=== PATIENT | male | born 1975 | race Caucasian/White ===

== ENCOUNTER 2022-05-19 16:28 | Emergency (ER) | payer OTHER, BC ==
[~2022-05-19] VITALS: Ht 177.8 cm; Wt 189.6 kg
[~2022-05-19 16:28] MED LIST: ALBU90OI INH; AZIT500 PO; CHANTIX PO; HYDGUAL120 PO; PRED20 PO
[2022-05-19 17:10] LABS: BASOPHILS ABSOLUTE AUTO 0.06 K/mm3 (0.00-0.23); BASOPHILS PERCENT AUTO 1 % (0-2); EOSINOPHILS ABSOLUTE AUTO 0.59 K/mm3 (0.00-0.68); EOSINOPHILS PERCENT AUTO 6 % (0-6); Hematocrit 45.3 % (37.0-53.0); Hemoglobin 15.5 g/dL (13.5-17.5); IMMATURE GRAN ABSOLUTE AUTO 0.09 K/mm3 (0.00-0.10); IMMATURE GRAN PERCENT AUTO 1 % (0-1); LYMPHOCYTES PERCENT AUTO 23 % (21-46); MONOCYTES ABSOLUTE AUTO 0.92 K/mm3 (0.16-1.47); MONOCYTES PERCENT AUTO 9 % (4-13); Mean Corpuscular HGB 30.4 pg (26.0-34.0); Mean Corpuscular HGB Conc 34.2 g/dL (31.5-36.5); Mean Corpuscular Volume 89 fL (80-100); Mean Platelet Volume 9.8 fL (9.1-12.4); NEUTROPHILS ABSOLUTE AUTO 6.17 K/mm3 (1.96-9.15); NEUTROPHILS PERCENT AUTO 61 % (41-73); Platelet Count 318 K/mm3 (150-400); RDW Coefficient Variation 13.2 % (11.7-14.2); RDW Standard Deviation 43.1 fL (35.1-46.3); White Blood Cell Count 10.13 K/mm3 (4.00-11.30)
[2022-05-19 17:11] LABS: Albumin, Blood 3.8 g/dL (3.4-5.0); Albumin/Globulin Ratio 1.1 (0.8-1.8); Bilirubin, Total 0.4 mg/dL (0.1-1.0); Bun/Creatinine Ratio 20.3 (12.0-20.0); Calcium, Blood 9.5 mg/dL (8.5-10.1); Creatinine, Blood 0.74 mg/dL (0.60-1.20); Globulin, Blood 3.5 g/dL (2.2-4.0); Potassium, Blood 3.9 mmol/L (3.5-5.5); Total Protein, Blood 7.3 g/dL (6.4-8.2)
[2022-05-19] MEDS ORDERED: HYDR1TAB94 PO (18:28)
[2022-05-19] MEDS ORDERED: IBUP600 PO (18:28)
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
== END 2022-05-19 18:36 | disposition home or self-care (01) ==
LOC: ER 16:28
PROVIDERS: Emergency Medicine
DX: S29.012A Strain of muscle and tendon of back wall of thorax, initial encounter (principal); E11.9 Type 2 diabetes mellitus without complications; V43.52XA Car driver injured in collision with other type car in traffic accident, initial encounter; W22.8XXA Striking against or struck by other objects, initial encounter
CPT/HCPCS: 70450; 71260; 72125; 74177; 80053; 85025; 93005; 93010; 96374-59; 96375-59; 99284-25; J1885; J3010; Q9967

== ENCOUNTER 2023-02-16 01:47 | Day surgery (SDC) | payer OTHER ==
[~2023-02-16 01:47] MED LIST changes: +HYDR1TAB94 PO; +IBUP600 PO
[2023-02-16 13:43] VITALS: BP 137/84
[2023-02-16] MEDS ORDERED: AMLO10 PO (15:04)
[2023-02-16] MEDS ORDERED: FURO20 PO (15:05)
[2023-02-16] MEDS ORDERED: GABA300 PO (15:05)
[2023-02-16] MEDS ORDERED: TELM80 PO (15:06)
[2023-02-16] MEDS ORDERED: LEVSOD137 PO (15:06)
[2023-02-16] MEDS ORDERED: NADO40 PO (15:06)
[2023-02-16] MEDS ORDERED: GLUCHON PO (15:07)
== END 2023-02-16 14:04 | disposition home or self-care (01) ==
LOC: ATC 01:47
DX: C73 Malignant neoplasm of thyroid gland (principal)
CPT/HCPCS: 96372; J3240

== ENCOUNTER 2023-02-17 01:05 | Day surgery (SDC) | payer OTHER ==
[~2023-02-17 01:05] MED LIST changes: +AMLO10 PO; +FURO20 PO; +GABA300 PO; +GLUCHON PO; +LEVSOD137 PO; +NADO40 PO; +TELM80 PO
[2023-02-17 13:41] VITALS: BP 131/74
== END 2023-02-17 13:44 | disposition home or self-care (01) ==
LOC: ATC 01:05
DX: C73 Malignant neoplasm of thyroid gland (principal); E89.0 Postprocedural hypothyroidism; I11.0 Hypertensive heart disease with heart failure; I50.9 Heart failure, unspecified; Z79.899 Other long term (current) drug therapy
CPT/HCPCS: 96372; J3240